=== PATIENT | female | born 1940 | race Caucasian/White ===

== ENCOUNTER 2016-06-28 05:07 | Day surgery (SDC) | payer BC, OTHER ==
[2016-06-27 09:14] LABS: BASOPHILS 0.6 %; BASOPHILS ABSOLUTE 0.04 10/3/uL (0.0-0.16); EOSINOPHILS ABSOLUTE 0.57 10/3/uL (0.0-0.53); IMMATURE GRANULOCYTES 0.1 %; IMMATURE GRANULOCYTES ABSOLUTE 0.01 10/3/uL (0.0-0.11); LYMPHOCYTES 27.2 %; LYMPHOCYTES ABSOLUTE 1.94 10/3/uL (0.67-4.30); MANUAL DIFF NO %; MEAN CORPUS HGB CONC 34.1 g/dL (32.0-36.0); MEAN CORPUSCULAR HEMOGLOB 30.8 pg (26.0-34.0); MEAN CORPUSCULAR VOLUME 90.3 fL (80-100); MEAN PLATELET VOLUME 11.7 fL (9.2-13.0); MONOCYTES 10.5 %; MONOCYTES ABSOLUTE 0.75 10/3/uL (0.21-1.20); NEUTROPHILS 53.6 %; NEUTROPHILS ABSOLUTE 3.81 10/3/uL (2.02-8.40); PLATELET COUNT 201 10/3/uL (150-400); RED CELL COUNT 4.54 10/6/uL (4.0-5.6); WHITE BLOOD CELLS 7.1 10/3/uL (4.5-10.5)
[2016-06-27 09:26] LABS: BUN (BLOOD UREA NITROGEN) 23 MG/DL (6-23); CALCIUM, SERUM 9.3 MG/DL (8.5-10.4); CHLORIDE, SERUM 104 MMOL/L (96-112); CO2 (CARBON DIOXIDE) 30 MMOL/L (24-34); CREATININE 1.22 MG/DL (0.55-1.02); GFR AFRICAN AMERICAN 49 ML/MIN (>=60); GFR NON AFRICAN AMERICAN 42 ML/MIN (>=60); GLUCOSE, SERUM 99 MG/DL (60-99); POTASSIUM, SERUM 3.7 MMOL/L (3.5-5.3); SODIUM, SERUM 144 MMOL/L (135-148)
--- NOTE | ~2016-06-28 | OP ---
Record Of Operation [facility] [address] [place]. [address] NAME: ZAYDA RODRIGUEZ : 36 STATUS : [facility]#: [id number] AGE: 76 ADM/REG DATE : 06/28/16 MR#: [id number] REPORT SERV DATE: 07/07/16 DICTATED BY: RADAMES HENRY DATE: 07/07/16 REPORT STATUS : Draft TRANSCRIBED BY: TANESHA DATE: 07/07/16 DATE OF PROCEDURE: 06/28/2016 PREOPERATIVE DIAGNOSIS: Left breast cancer. POSTOPERATIVE DIAGNOSIS: Left breast cancer. OPERATION PERFORMED: Right internal jugular Port-A-Cath placement under ultrasound and fluoroscopic guidance. SURGEON: Radames Henry M.D. ANESTHESIA: General. ESTIMATED BLOOD LOSS: Less than 10 mL. IV FLUIDS: Adequate. DESCRIPTION OF PROCEDURE: After proper sedation, the patient was prepped and draped in proper sterile fashion. Ultrasound probe was placed over the right neck. She had a patent and pliable right internal jugular vein. Right chest wall and right neck were infiltrated with local anesthesia. Right internal jugular vein was cannulated using a 14-gauge needle under ultrasound guidance. A guidewire was then fed under fluoroscopic guidance just above the right heart. A transverse incision was made on the right chest wall. Subcutaneous tissues were incised down to pectoralis fascia, and the pocket was bluntly dissected. Introducer sheath was then placed over the guidewire. A catheter was then fed through the introducer sheath with the tip being just above the right heart. The catheter was then tunneled subcutaneously to the port pocket and secured to the port. Port was secured to the chest wall using 3-0 Vicryl suture. The port was then flushed and aspirated, flushed and aspirated easily. The skin was closed using interrupted 3-0 Vicryl sutures. Steri-Strips and dressings were then placed. The patient was taken to the recovery room in satisfactory condition. FRANDY/TANESHA Radames Henry M.D. / [id number] CC: Zackery Gonzales M.D.
[~2016-06-28 05:07] MED LIST: ADVIL PM PO; ADVIL PO; ALEVE220 MG PO; ASAB PO; B12 PO; B6 PO; CALTRA600D PO; CARDCD120 PO; CYANO1000T PO; D3 PO; DIOVAN HCT PO; ELIQUIS 5 MG TAB5 MG PO; FISH OIL PO; FISH-EPA1000 MG PO; FLECAINIDE100 MG PO; HARD NAILS PO; IRON TAB PO; LOP50 PO; LOPID6 PO; LORTAB 5 PO; LOVENOX IJ; MAGNESIUM PO; MAX25 PO; PCET PO; PEPCID40 MG PO; PROTONIX PO; VIT B-SIX 50 MG50 MG OR; VITAMIN D31000 UNIT PO; VITE1000 PO; ZOFRAN4 PO; ZOL50 PO
[2017-01-12] MEDS ORDERED: ELIQUIS 5 MG TAB5 MG PO ×3 (01:36→11:03)
[2017-01-12] MEDS ORDERED: CARDCD120 PO (01:37)
[2017-01-12] MEDS ORDERED: FLECAINIDE100 MG PO ×2 (01:38→11:04)
[2017-01-12] MEDS ORDERED: ASAB PO (01:38)
[2017-01-12] MEDS ORDERED: MAX25 PO ×2 (01:39→11:09)
[2017-01-12] MEDS ORDERED: NEUR400 PO (01:40)
[2017-01-12] MEDS ORDERED: PEP20 PO (01:40)
[2017-01-12] MEDS ORDERED: ZOL50 PO (01:41)
[2017-01-12] MEDS ORDERED: B COMPLETE PO (01:41)
[2017-01-12] MEDS ORDERED: VITE PO (01:42)
[2017-01-12] MEDS ORDERED: D 5000 PO (01:42)
[2017-01-12] MEDS ORDERED: MAG OXIDE250 MG PO (01:42)
[2017-01-12] MEDS ORDERED: FISH OIL1200 MG PO (01:43)
[2017-01-12] MEDS ORDERED: FERROUS SULF325 M1 PO (01:44)
[2017-01-12] MEDS ORDERED: PEPCID40 MG PO (11:05)
[2017-01-12] MEDS ORDERED: ARIMIDEX1 PO (11:07)
[2017-01-12] MEDS ORDERED: NEUR100 PO (11:07)
== END 2016-06-28 09:48 | disposition home or self-care (01) ==
LOC: SDC 05:07
PROVIDERS: Specialist
PROC: 05HM33Z Insertion of Infusion Device into Right Internal Jugular Vein, Percutaneous Approach (ICD-10-PCS; 2016-06-28)
PROC: B513YZA Fluoroscopy of Right Jugular Veins using Other Contrast, Guidance (ICD-10-PCS; 2016-06-28)
PROC: 0JH60XZ Insertion of Tunneled Vascular Access Device into Chest Subcutaneous Tissue and Fascia, Open Approach (ICD-10-PCS; principal; 2016-06-28 07:00)
DX: C50.912 Malignant neoplasm of unspecified site of left female breast (principal); I87.8 Other specified disorders of veins; E11.9 Type 2 diabetes mellitus without complications; I10 Essential (primary) hypertension; M19.90 Unspecified osteoarthritis, unspecified site; I48.91 Unspecified atrial fibrillation; F41.9 Anxiety disorder, unspecified; F32.9 Major depressive disorder, single episode, unspecified; D64.9 Anemia, unspecified; Z88.5 Allergy status to narcotic agent; Z79.82 Long term (current) use of aspirin; Z79.899 Other long term (current) drug therapy; Z86.73 Personal history of transient ischemic attack (TIA), and cerebral infarction without residual deficits; Z80.1 Family history of malignant neoplasm of trachea, bronchus and lung; Z83.3 Family history of diabetes mellitus; Z79.1 Long term (current) use of non-steroidal anti-inflammatories (NSAID); Z90.710 Acquired absence of both cervix and uterus; Z98.41 Cataract extraction status, right eye; Z98.42 Cataract extraction status, left eye; Z98.890 Other specified postprocedural states
CPT/HCPCS: 71010; 77002; 80048; 85025; 93005; C1788; J0690; J3010; Q9967